=== PATIENT | male | born 1945 | race Asian ===

== ENCOUNTER 2022-09-10 01:11 | Inpatient (IN) | payer MEDICARE ==
[2022-09-10] MEDS ORDERED: Ondansetron ODT 4 MG TAB PO PRN (05:06)
[2022-09-10] MEDS ORDERED: Acetaminophen 325 MG TAB PO PRN (05:06)
[2022-09-10] MEDS ORDERED: Acetaminophen 650 MG Suppository PR PRN (05:06)
[2022-09-10] MEDS ORDERED: Ondansetron PF 4 MG/2 ML Vial IVP PRN (05:06)
[2022-09-10 05:15] VITALS: BMI 20.9
[2022-09-10] MEDS: Sodium Chloride 0.9% 1,000 ML IV SCH (09:21)
[2022-09-10] MEDS ORDERED: Dextrose 50% Abboject 50 ML SYRINGE SLOW IVP PRN (09:22)
[2022-09-10] MEDS ORDERED: Dextrose 5% in Water 1,000 ML IV PRN (09:22)
[2022-09-10] MEDS ORDERED: HumaLOG 300 UNITS/3 ML VIAL SC PRN (09:22)
[2022-09-10] MEDS ORDERED: Glucagon 1 MG/ML KIT IM PRN (09:22)
[2022-09-10] MEDS ORDERED: hydrALAZINE 20 MG/ML VIAL SLOW IVP PRN (09:46)
[2022-09-10] MEDS ORDERED: GoLYTELY 4,000 ml Bottle PO SCH (18:30)
[2022-09-10] MEDS: HumaLOG 300 UNITS/3 ML VIAL SC PRN (23:36)
[2022-09-11] MEDS: Sodium Chloride 0.9% 1,000 ML IV SCH (05:37)
[2022-09-11 06:10] LABS: #Basophils 0.1 thou/uL (0.0-0.2); #Eosinphils 0.1 thou/uL (0.0-0.7); #Monocytes 0.8 thou/uL (0.11-0.59); #Neutrophils 4.2 thou/uL (1.40-6.50); %Basophils 1.6 % (0.0-1.0); %Eosinophils 0.8 % (0.0-10.0); %Lymphocytes 18.2 % (21.0-51.0); %Monocytes 12.1 % (0.0-10.0); %Neutrophils 65.7 % (42.0-75.0); Hemoglobin 11.5 g/dL (14.0-18.0); Mean Corpuscular HGB CONC 30.5 g/dL (32.0-36.0); Mean Corpuscular Hemoglobin 26.3 pg (27.0-31.0); Mean Corpuscular Volume 86.1 fl (78.0-98.0); Mean Platelet Volume 8.4 fL (7.4-10.4); Platelet Count 316 10x3/uL (130-400); RBC Distribution Width 20.2 % (11.5-14.5); Red Blood Cell (RBC) Count 4.38 mill/uL (4.70-6.10); White Blood Cell (WBC) Count 6.4 10x3/uL (4.8-10.8)
[2022-09-11 06:28] LABS: Anion Gap 13 mmol/L (10-20); BUN (Urea Nitrogen) 18 mg/dL (8.4-25.7); Calc. Creatinine Clearance 54 mL/min (70-130); Calcium 9.3 mg/dL (7.8-10.44); Carbon Dioxide 28 mmol/L (23-31); Chloride 103 mmol/L (98-107); Estimated GFR 73; Glucose 111 mg/dL (83-110); Potassium 4.2 mmol/L (3.5-5.1); Sodium 140 mmol/L (136-145)
[2022-09-11] MEDS ORDERED: PROPOFOL 200 MG/20 ML VIAL ONE (09:55)
[2022-09-11] MEDS ORDERED: HumaLOG 300 UNITS/3 ML VIAL SC PRN (14:03)
[2022-09-11] MEDS ORDERED: Lisinopril 20 MG TAB PO SCH (14:15)
[2022-09-12] MEDS: Sodium Chloride 0.9% 1,000 ML IV SCH (01:39)
[2022-09-12] MEDS ORDERED: Meropenem 2 GM in Sodium Chloride 0.9% 100 ML IVPB SCH (06:00)
[2022-09-12] MEDS ORDERED: Fentanyl 250 MCG/5 ML VIAL ONE (06:21)
[2022-09-12] MEDS ORDERED: HYDROmorphone 2 MG/ML VIAL ONE (06:21)
[2022-09-12] MEDS ORDERED: SUGAMMADEX SODIUM 200 MG/2 ML VIAL ONE (06:22)
[2022-09-12] MEDS ORDERED: Dexmedetomidine 200 MCG/2 ML VIAL ONE (06:22)
[2022-09-12] MEDS ORDERED: PHENYLEPHRINE-NS 100 MCG/ML 10 ML SYRINGE ONE ×2 (06:22→07:48)
[2022-09-12] MEDS ORDERED: Bupivacaine HCl 0.5%/Epinephrine 1:200,000/PF 30 ml Vial ONE (06:54)
[2022-09-12] MEDS ORDERED: Ondansetron PF 4 MG/2 ML Vial ONE (07:48)
[2022-09-12] MEDS ORDERED: PROPOFOL 200 MG/20 ML VIAL ONE (07:48)
[2022-09-12] MEDS ORDERED: Dexamethasone 20 MG/5 ML VIAL ONE (07:48)
[2022-09-12] MEDS ORDERED: Rocuronium Bromide 10 MG/ML (10ML VIAL) ONE (07:48)
[2022-09-12] MEDS ORDERED: Lidocaine 1% PF 5 ML VIAL ONE (07:48)
[2022-09-12 09:15] LABS: % Free PSA 8.5 % (.); Total PSA 42.2 ng/mL (0.0-4.0)
[2022-09-12] MEDS ORDERED: Bupivacaine PF 0.5% 30 ML VIAL ONE (10:25)
[2022-09-12] MEDS ORDERED: Acetaminophen 500 MG TAB PO SCH (10:45)
[2022-09-12] MEDS ORDERED: hydrALAZINE 20 MG/ML VIAL ONE (11:16)
[2022-09-12] MEDS ORDERED: fentaNYL 50 mcg/mL 1 mL Vial ONE (11:41)
[2022-09-12] MEDS: Ketorolac Tromethamine 30 MG/ML VIAL IVP SCH ×3 (12:55→23:47)
[2022-09-12] MEDS: HumaLOG 300 UNITS/3 ML VIAL SC PRN ×2 (12:58→20:22)
[2022-09-12] MEDS: Lisinopril 20 MG TAB PO SCH (13:58)
[2022-09-12] MEDS: Acetaminophen 500 MG TAB PO SCH ×3 (13:59→20:21)
[2022-09-12] MEDS: Lactated Ringer's 1,000 ML IV SCH ×2 (13:59→18:50)
[2022-09-12] MEDS ORDERED: Gabapentin 300 MG CAP PO SCH (15:00)
[2022-09-12] MEDS: Gabapentin 100 MG CAP PO SCH ×2 (15:05→20:22)
[2022-09-12] MEDS ORDERED: Ketorolac Tromethamine 30 MG/ML VIAL IVP SCH (17:15)
[2022-09-13] MEDS: Lactated Ringer's 1,000 ML IV SCH ×3 (04:11→21:09)
[2022-09-13] MEDS: Ketorolac Tromethamine 30 MG/ML VIAL IVP SCH ×4 (05:30→23:30)
[2022-09-13 05:40] LABS: #Monocytes 1.3 thou/uL (0.11-0.59); #Neutrophils 9.5 thou/uL (1.40-6.50); %Basophils 0.2 % (0.0-1.0); %Eosinophils 0.1 % (0.0-10.0); %Monocytes 10.1 % (0.0-10.0); Hemoglobin 9.5 g/dL (14.0-18.0); Mean Corpuscular HGB CONC 30.7 g/dL (32.0-36.0); Mean Corpuscular Hemoglobin 26.8 pg (27.0-31.0); Mean Platelet Volume 8.8 fL (7.4-10.4); Platelet Count 254 10x3/uL (130-400); RBC Distribution Width 20.5 % (11.5-14.5); Red Blood Cell (RBC) Count 3.55 mill/uL (4.70-6.10); White Blood Cell (WBC) Count 12.6 10x3/uL (4.8-10.8)
[2022-09-13 05:46] LABS: Hemoglobin A1c 8.3 % (4.0-6.0)
[2022-09-13 06:03] LABS: Anion Gap 10 mmol/L (10-20); BUN (Urea Nitrogen) 19 mg/dL (8.4-25.7); Calc. Creatinine Clearance 47 mL/min (70-130); Calcium 8.5 mg/dL (7.8-10.44); Carbon Dioxide 26 mmol/L (23-31); Chloride 106 mmol/L (98-107); Estimated GFR 62; Glucose 186 mg/dL (83-110); Potassium 3.8 mmol/L (3.5-5.1); Sodium 138 mmol/L (136-145)
[2022-09-13] MEDS: Lisinopril 20 MG TAB PO SCH (08:39)
[2022-09-13] MEDS: Gabapentin 100 MG CAP PO SCH ×3 (08:40→21:07)
[2022-09-13] MEDS: Pantoprazole 40 MG VIAL IVP SCH (08:44)
[2022-09-13] MEDS: Acetaminophen 500 MG TAB PO SCH ×4 (08:44→21:06)
[2022-09-13] MEDS: Insulin Glargine 30 UNITS/0.3 ML VIAL SC SCH (21:09)
[2022-09-14 05:40] LABS: #Eosinphils 0.1 thou/uL (0.0-0.7); #Monocytes 0.9 thou/uL (0.11-0.59); #Neutrophils 7.9 thou/uL (1.40-6.50); %Basophils 0.3 % (0.0-1.0); %Eosinophils 1.1 % (0.0-10.0); %Lymphocytes 12.6 % (21.0-51.0); %Monocytes 8.6 % (0.0-10.0); %Neutrophils 76.6 % (42.0-75.0); Hemoglobin 9.3 g/dL (14.0-18.0); Mean Corpuscular HGB CONC 30.4 g/dL (32.0-36.0); Mean Corpuscular Hemoglobin 26.9 pg (27.0-31.0); Mean Corpuscular Volume 88.4 fl (78.0-98.0); Mean Platelet Volume 8.7 fL (7.4-10.4); Platelet Count 236 10x3/uL (130-400); RBC Distribution Width 20.5 % (11.5-14.5); Red Blood Cell (RBC) Count 3.46 mill/uL (4.70-6.10); White Blood Cell (WBC) Count 10.3 10x3/uL (4.8-10.8)
[2022-09-14] MEDS: Lactated Ringer's 1,000 ML IV SCH (06:04)
[2022-09-14] MEDS: Ketorolac Tromethamine 30 MG/ML VIAL IVP SCH (06:05)
[2022-09-14 06:06] LABS: Anion Gap 10 mmol/L (10-20); BUN (Urea Nitrogen) 17 mg/dL (8.4-25.7); Calc. Creatinine Clearance 50 mL/min (70-130); Calcium 8.5 mg/dL (7.8-10.44); Carbon Dioxide 26 mmol/L (23-31); Chloride 106 mmol/L (98-107); Estimated GFR 68; Glucose 146 mg/dL (83-110); Potassium 3.7 mmol/L (3.5-5.1); Sodium 138 mmol/L (136-145)
[2022-09-14] MEDS ORDERED: Acetaminophen/Codeine 30-300mg Tablet PO PRN (09:17)
[2022-09-14] MEDS ORDERED: Acetaminophen 325 MG TAB PO SCH (09:30)
[2022-09-14] MEDS: Gabapentin 100 MG CAP PO SCH ×3 (09:48→21:41)
[2022-09-14] MEDS: Lisinopril 20 MG TAB PO SCH (09:49)
[2022-09-14] MEDS: Pantoprazole 40 MG VIAL IVP SCH (09:51)
[2022-09-14] MEDS: Acetaminophen/Codeine 30-300mg Tablet PO SCH ×3 (13:35→22:00)
[2022-09-14] MEDS: Acetaminophen 500 MG TAB PO SCH (13:36)
[2022-09-14] MEDS: Acetaminophen 325 MG TAB PO SCH ×3 (13:37→21:41)
[2022-09-14] MEDS: HumaLOG 300 UNITS/3 ML VIAL SC PRN (13:47)
[2022-09-14] MEDS: Insulin Glargine 30 UNITS/0.3 ML VIAL SC SCH (21:40)
[2022-09-15] MEDS: Acetaminophen/Codeine 30-300mg Tablet PO SCH ×2 (04:44→05:52)
[2022-09-15] MEDS: hydrALAZINE 20 MG/ML VIAL SLOW IVP PRN (05:52)
[2022-09-15] MEDS: Acetaminophen 325 MG TAB PO SCH (08:19)
[2022-09-15] MEDS: Pantoprazole 40 MG VIAL IVP SCH (08:20)
[2022-09-15] MEDS: Gabapentin 100 MG CAP PO SCH (08:20)
[2022-09-15] MEDS: Ibuprofen 200 MG TAB PO PRN ×2 (08:41→16:42)
[2022-09-15] MEDS: Lisinopril 20 MG TAB PO SCH (08:41)
[2022-09-15] MEDS: Ferrous Sulfate 325 MG TAB PO SCH ×3 (12:52→19:38)
[2022-09-15] MEDS: HumaLOG 300 UNITS/3 ML VIAL SC PRN (12:53)
[2022-09-15] MEDS ORDERED: Acetaminophen/Codeine 30-300mg Tablet PO SCH (15:00)
[2022-09-15] MEDS ORDERED: traMADol HCl 50 MG TAB PO PRN (15:59)
[2022-09-15] MEDS: Gabapentin 300 MG CAP PO SCH ×2 (16:41→21:38)
[2022-09-15] MEDS: Acetaminophen 500 MG TAB PO PRN (16:42)
[2022-09-15] MEDS: Insulin Glargine 30 UNITS/0.3 ML VIAL SC SCH (21:38)
[2022-09-15] MEDS: Melatonin 3 MG TAB PO SCH (21:38)
[2022-09-16 05:52] LABS: #Basophils 0.1 thou/uL (0.0-0.2); #Eosinphils 0.2 thou/uL (0.0-0.7); #Monocytes 0.7 thou/uL (0.11-0.59); #Neutrophils 4.4 thou/uL (1.40-6.50); %Basophils 0.9 % (0.0-1.0); %Eosinophils 3.1 % (0.0-10.0); %Lymphocytes 17.2 % (21.0-51.0); %Monocytes 10.1 % (0.0-10.0); %Neutrophils 67.6 % (42.0-75.0); Hemoglobin 8.6 g/dL (14.0-18.0); Mean Corpuscular Hemoglobin 26.9 pg (27.0-31.0); Mean Corpuscular Volume 86.6 fl (78.0-98.0); Mean Platelet Volume 8.8 fL (7.4-10.4); Platelet Count 283 10x3/uL (130-400); White Blood Cell (WBC) Count 6.5 10x3/uL (4.8-10.8)
[2022-09-16 06:11] LABS: Anion Gap 11 mmol/L (10-20); BUN (Urea Nitrogen) 19 mg/dL (8.4-25.7); Calc. Creatinine Clearance 51 mL/min (70-130); Calcium 8.7 mg/dL (7.8-10.44); Carbon Dioxide 23 mmol/L (23-31); Chloride 109 mmol/L (98-107); Estimated GFR 69; Glucose 138 mg/dL (83-110); Potassium 3.8 mmol/L (3.5-5.1); Sodium 139 mmol/L (136-145)
[2022-09-16] MEDS: Ferrous Sulfate 325 MG TAB PO SCH ×2 (08:45→17:46)
[2022-09-16] MEDS: Pantoprazole 40 MG VIAL IVP SCH (08:45)
[2022-09-16] MEDS: Gabapentin 300 MG CAP PO SCH ×3 (08:45→21:21)
[2022-09-16] MEDS: Lisinopril 20 MG TAB PO SCH (08:45)
[2022-09-16] MEDS: HumaLOG 300 UNITS/3 ML VIAL SC PRN (17:46)
[2022-09-16] MEDS ORDERED: Sterile Water 10 ML VIAL FS PRN (21:00)
[2022-09-16] MEDS ORDERED: Melatonin 3 MG TAB PO SCH (21:00)
[2022-09-16] MEDS ORDERED: OLANZapine 10 MG VIAL IM SCH (21:00)
[2022-09-16] MEDS: Insulin Glargine 30 UNITS/0.3 ML VIAL SC SCH (21:20)
[2022-09-16] MEDS: traMADol HCl 50 MG TAB PO PRN (21:21)
[2022-09-16] MEDS: Melatonin 3 MG TAB PO SCH (23:40)
[2022-09-17] MEDS: Lisinopril 20 MG TAB PO SCH (09:01)
[2022-09-17] MEDS: Pantoprazole 40 MG VIAL IVP SCH (09:01)
[2022-09-17] MEDS: Ferrous Sulfate 325 MG TAB PO SCH ×2 (09:01→16:03)
[2022-09-17] MEDS: Gabapentin 300 MG CAP PO SCH ×3 (09:02→21:36)
[2022-09-17] MEDS: Acetaminophen 500 MG TAB PO PRN (09:13)
[2022-09-17] MEDS: HumaLOG 300 UNITS/3 ML VIAL SC PRN ×2 (12:44→18:04)
[2022-09-17] MEDS: Ibuprofen 200 MG TAB PO PRN ×2 (12:48→22:07)
[2022-09-17] MEDS: Melatonin 3 MG TAB PO SCH (21:35)
[2022-09-17] MEDS: Insulin Glargine 30 UNITS/0.3 ML VIAL SC SCH (21:37)
[2022-09-18 05:50] LABS: #Basophils 0.1 thou/uL (0.0-0.2); #Eosinphils 0.2 thou/uL (0.0-0.7); #Monocytes 0.8 thou/uL (0.11-0.59); #Neutrophils 3.9 thou/uL (1.40-6.50); %Basophils 0.9 % (0.0-1.0); %Eosinophils 3.7 % (0.0-10.0); %Lymphocytes 21.8 % (21.0-51.0); %Monocytes 11.9 % (0.0-10.0); %Neutrophils 60.1 % (42.0-75.0); Hemoglobin 8.8 g/dL (14.0-18.0); Mean Corpuscular HGB CONC 30.2 g/dL (32.0-36.0); Mean Corpuscular Volume 89.3 fl (78.0-98.0); Mean Platelet Volume 8.5 fL (7.4-10.4); Platelet Count 277 10x3/uL (130-400); RBC Distribution Width 20.3 % (11.5-14.5); Red Blood Cell (RBC) Count 3.26 mill/uL (4.70-6.10); White Blood Cell (WBC) Count 6.4 10x3/uL (4.8-10.8)
[2022-09-18] MEDS: HumaLOG 300 UNITS/3 ML VIAL SC PRN ×3 (06:00→18:14)
[2022-09-18 06:36] LABS: Anion Gap 11 mmol/L (10-20); BUN (Urea Nitrogen) 15 mg/dL (8.4-25.7); Calc. Creatinine Clearance 47 mL/min (70-130); Calcium 9.2 mg/dL (7.8-10.44); Carbon Dioxide 28 mmol/L (23-31); Chloride 103 mmol/L (98-107); Estimated GFR 62; Glucose 166 mg/dL (83-110); Potassium 4.2 mmol/L (3.5-5.1); Sodium 138 mmol/L (136-145)
[2022-09-18] MEDS: Lisinopril 20 MG TAB PO SCH (09:16)
[2022-09-18] MEDS: Ferrous Sulfate 325 MG TAB PO SCH ×2 (09:16→16:36)
[2022-09-18] MEDS: Pantoprazole 40 MG VIAL IVP SCH (09:17)
[2022-09-18] MEDS: Gabapentin 300 MG CAP PO SCH ×3 (09:18→20:13)
[2022-09-18] MEDS: Polyethylene Glycol 3350 17 GM Packet PO SCH (09:18)
[2022-09-18] MEDS: hydrALAZINE 20 MG/ML VIAL SLOW IVP PRN (14:01)
[2022-09-18] MEDS: Acetaminophen 500 MG TAB PO PRN (18:14)
[2022-09-18] MEDS: Insulin Glargine 30 UNITS/0.3 ML VIAL SC SCH (20:14)
[2022-09-18] MEDS: Melatonin 3 MG TAB PO SCH (20:14)
[2022-09-19] MEDS: Lisinopril 20 MG TAB PO SCH (09:52)
[2022-09-19] MEDS: Gabapentin 300 MG CAP PO SCH ×3 (09:52→21:53)
[2022-09-19] MEDS: Ferrous Sulfate 325 MG TAB PO SCH ×2 (09:52→18:04)
[2022-09-19] MEDS: Polyethylene Glycol 3350 17 GM Packet PO SCH (10:07)
[2022-09-19] MEDS: Pantoprazole 40 MG VIAL IVP SCH (10:07)
[2022-09-19] MEDS: HumaLOG 300 UNITS/3 ML VIAL SC PRN ×2 (12:29→18:09)
[2022-09-19] MEDS: hydrALAZINE 20 MG/ML VIAL SLOW IVP PRN (18:08)
[2022-09-19] MEDS: Melatonin 3 MG TAB PO SCH (21:53)
[2022-09-19] MEDS: traMADol HCl 50 MG TAB PO PRN (21:57)
[2022-09-19] MEDS: Insulin Glargine 30 UNITS/0.3 ML VIAL SC SCH (21:58)
[2022-09-20] MEDS: Ferrous Sulfate 325 MG TAB PO SCH ×2 (09:43→18:09)
[2022-09-20] MEDS: Lisinopril 20 MG TAB PO SCH (09:43)
[2022-09-20] MEDS: Gabapentin 300 MG CAP PO SCH ×3 (09:44→19:44)
[2022-09-20] MEDS: traMADol HCl 50 MG TAB PO PRN (09:57)
[2022-09-20] MEDS: Pantoprazole 40 MG VIAL IVP SCH (10:00)
[2022-09-20] MEDS: HumaLOG 300 UNITS/3 ML VIAL SC PRN (12:57)
[2022-09-20] MEDS: Polyethylene Glycol 3350 17 GM Packet PO SCH (15:32)
[2022-09-20] MEDS: Insulin Glargine 30 UNITS/0.3 ML VIAL SC SCH (19:44)
[2022-09-20] MEDS: Melatonin 3 MG TAB PO SCH (19:44)
[2022-09-21] MEDS: traMADol HCl 50 MG TAB PO PRN (02:11)
[2022-09-21] MEDS: Acetaminophen 500 MG TAB PO PRN (02:11)
[2022-09-21 06:24] LABS: #Basophils 0.1 thou/uL (0.0-0.2); #Eosinphils 0.4 thou/uL (0.0-0.7); #Monocytes 1.2 thou/uL (0.11-0.59); #Neutrophils 5.2 thou/uL (1.40-6.50); %Eosinophils 4.4 % (0.0-10.0); %Lymphocytes 17.4 % (21.0-51.0); %Monocytes 13.7 % (0.0-10.0); %Neutrophils 59.7 % (42.0-75.0); Hemoglobin 9.7 g/dL (14.0-18.0); Mean Corpuscular HGB CONC 30.4 g/dL (32.0-36.0); Mean Corpuscular Hemoglobin 27.2 pg (27.0-31.0); Mean Corpuscular Volume 89.4 fl (78.0-98.0); Mean Platelet Volume 8.6 fL (7.4-10.4); Platelet Count 333 10x3/uL (130-400); RBC Distribution Width 20.6 % (11.5-14.5); Red Blood Cell (RBC) Count 3.57 mill/uL (4.70-6.10); White Blood Cell (WBC) Count 8.7 10x3/uL (4.8-10.8)
[2022-09-21 06:49] LABS: Anion Gap 13 mmol/L (10-20); BUN (Urea Nitrogen) 23 mg/dL (8.4-25.7); Calc. Creatinine Clearance 43 mL/min (70-130); Calcium 9.2 mg/dL (7.8-10.44); Carbon Dioxide 26 mmol/L (23-31); Chloride 100 mmol/L (98-107); Estimated GFR 56; Glucose 191 mg/dL (83-110); Potassium 4.3 mmol/L (3.5-5.1); Sodium 135 mmol/L (136-145)
[2022-09-21] MEDS: Gabapentin 300 MG CAP PO SCH ×3 (08:39→23:18)
[2022-09-21] MEDS: Lisinopril 20 MG TAB PO SCH (08:39)
[2022-09-21] MEDS: Polyethylene Glycol 3350 17 GM Packet PO SCH (08:39)
[2022-09-21] MEDS: Pantoprazole 40 MG VIAL IVP SCH (08:40)
[2022-09-21] MEDS: Ferrous Sulfate 325 MG TAB PO SCH ×2 (08:40→17:19)
[2022-09-21] MEDS: HumaLOG 300 UNITS/3 ML VIAL SC PRN (13:42)
[2022-09-21] MEDS: Insulin Glargine 30 UNITS/0.3 ML VIAL SC SCH (23:18)
[2022-09-21] MEDS: Melatonin 3 MG TAB PO SCH (23:19)
[2022-09-22] MEDS: Pantoprazole 40 MG VIAL IVP SCH (08:35)
[2022-09-22] MEDS: Lisinopril 20 MG TAB PO SCH (08:35)
[2022-09-22] MEDS: Gabapentin 300 MG CAP PO SCH ×3 (08:35→20:09)
[2022-09-22] MEDS: Ferrous Sulfate 325 MG TAB PO SCH ×2 (08:35→16:12)
[2022-09-22] MEDS: Polyethylene Glycol 3350 17 GM Packet PO SCH (08:36)
[2022-09-22] MEDS: HumaLOG 300 UNITS/3 ML VIAL SC PRN ×2 (12:44→16:47)
[2022-09-22] MEDS: Insulin Glargine 30 UNITS/0.3 ML VIAL SC SCH (20:09)
[2022-09-22] MEDS: Melatonin 3 MG TAB PO SCH (20:09)
[2022-09-23] MEDS: Polyethylene Glycol 3350 17 GM Packet PO SCH (07:54)
[2022-09-23] MEDS: Ferrous Sulfate 325 MG TAB PO SCH ×2 (07:55→17:28)
[2022-09-23] MEDS: Lisinopril 20 MG TAB PO SCH (07:55)
[2022-09-23] MEDS: Pantoprazole 40 MG VIAL IVP SCH (07:55)
[2022-09-23] MEDS: Gabapentin 300 MG CAP PO SCH ×3 (07:55→20:15)
[2022-09-23] MEDS: HumaLOG 300 UNITS/3 ML VIAL SC PRN ×2 (12:40→17:28)
[2022-09-23] MEDS: Insulin Glargine 30 UNITS/0.3 ML VIAL SC SCH (20:16)
[2022-09-23] MEDS: Melatonin 3 MG TAB PO SCH (20:16)
[2022-09-24] MEDS: HumaLOG 300 UNITS/3 ML VIAL SC PRN ×3 (06:42→16:47)
[2022-09-24] MEDS: Lisinopril 20 MG TAB PO SCH (09:34)
[2022-09-24] MEDS: Gabapentin 300 MG CAP PO SCH ×3 (09:35→21:58)
[2022-09-24] MEDS: Ferrous Sulfate 325 MG TAB PO SCH ×2 (09:36→16:46)
[2022-09-24] MEDS: Pantoprazole 40 MG VIAL IVP SCH (09:38)
[2022-09-24] MEDS: Polyethylene Glycol 3350 17 GM Packet PO SCH (09:50)
[2022-09-24] MEDS: Lidocaine 4% Patch TD SCH (16:46)
[2022-09-24] MEDS: Melatonin 3 MG TAB PO SCH (21:58)
[2022-09-24] MEDS: Insulin Glargine 30 UNITS/0.3 ML VIAL SC SCH (22:04)
[2022-09-25] MEDS: Transdermal Patch Removal TOP SCH (04:13)
[2022-09-25] MEDS: Ferrous Sulfate 325 MG TAB PO SCH ×2 (10:06→15:55)
[2022-09-25] MEDS: Gabapentin 300 MG CAP PO SCH ×3 (10:06→22:50)
[2022-09-25] MEDS: Lisinopril 20 MG TAB PO SCH (10:07)
[2022-09-25] MEDS: Polyethylene Glycol 3350 17 GM Packet PO SCH (10:07)
[2022-09-25] MEDS: Acetaminophen 500 MG TAB PO PRN (10:10)
[2022-09-25] MEDS: Pantoprazole 40 MG VIAL IVP SCH (10:12)
[2022-09-25] MEDS: HumaLOG 300 UNITS/3 ML VIAL SC PRN ×2 (13:19→22:52)
[2022-09-25] MEDS: Lidocaine 4% Patch TD SCH (15:55)
[2022-09-25] MEDS: Insulin Glargine 30 UNITS/0.3 ML VIAL SC SCH (22:51)
[2022-09-25] MEDS: Melatonin 3 MG TAB PO SCH (22:51)
[2022-09-26] MEDS: Transdermal Patch Removal TOP SCH (04:47)
[2022-09-26] MEDS: Polyethylene Glycol 3350 17 GM Packet PO SCH (09:13)
[2022-09-26] MEDS: Gabapentin 300 MG CAP PO SCH ×3 (09:49→21:03)
[2022-09-26] MEDS: Ferrous Sulfate 325 MG TAB PO SCH ×2 (09:49→18:13)
[2022-09-26] MEDS: Lisinopril 20 MG TAB PO SCH (09:50)
[2022-09-26] MEDS: Lidocaine 4% Patch TD SCH (15:44)
[2022-09-26] MEDS: HumaLOG 300 UNITS/3 ML VIAL SC PRN (18:18)
[2022-09-26] MEDS: Melatonin 3 MG TAB PO SCH (21:02)
[2022-09-26] MEDS: Insulin Glargine 30 UNITS/0.3 ML VIAL SC SCH (21:03)
[2022-09-27] MEDS: Transdermal Patch Removal TOP SCH (03:10)
[2022-09-27] MEDS: HumaLOG 300 UNITS/3 ML VIAL SC PRN ×3 (06:38→17:28)
[2022-09-27] MEDS: Gabapentin 300 MG CAP PO SCH ×3 (08:27→20:54)
[2022-09-27] MEDS: Polyethylene Glycol 3350 17 GM Packet PO SCH (08:29)
[2022-09-27] MEDS: Lisinopril 20 MG TAB PO SCH (08:29)
[2022-09-27] MEDS: Ferrous Sulfate 325 MG TAB PO SCH ×2 (08:30→16:27)
[2022-09-27] MEDS ORDERED: Iopamidol-370 76% 500 ML MDV (1 ML CHARGE) ONE (10:36)
[2022-09-27] MEDS: Lidocaine 4% Patch TD SCH (15:42)
[2022-09-27] MEDS: Insulin Glargine 30 UNITS/0.3 ML VIAL SC SCH (20:49)
[2022-09-27] MEDS: Melatonin 3 MG TAB PO SCH (20:56)
[2022-09-28] MEDS: HumaLOG 300 UNITS/3 ML VIAL SC PRN ×3 (01:04→14:04)
[2022-09-28] MEDS: Transdermal Patch Removal TOP SCH (02:25)
[2022-09-28 06:13] LABS: #Basophils 0.2 thou/uL (0.0-0.2); #Eosinphils 0.6 thou/uL (0.0-0.7); #Monocytes 1.2 thou/uL (0.11-0.59); #Neutrophils 5.1 thou/uL (1.40-6.50); %Lymphocytes 13.9 % (21.0-51.0); %Monocytes 14.4 % (0.0-10.0); %Neutrophils 58.9 % (42.0-75.0); Hemoglobin 10.5 g/dL (14.0-18.0); Mean Corpuscular HGB CONC 30.3 g/dL (32.0-36.0); Mean Corpuscular Hemoglobin 27.9 pg (27.0-31.0); Mean Corpuscular Volume 91.8 fl (78.0-98.0); Mean Platelet Volume 9.3 fL (7.4-10.4); Platelet Count 418 10x3/uL (130-400); RBC Distribution Width 20.4 % (11.5-14.5); Red Blood Cell (RBC) Count 3.77 mill/uL (4.70-6.10); White Blood Cell (WBC) Count 8.6 10x3/uL (4.8-10.8)
[2022-09-28 06:34] LABS: Anion Gap 15 mmol/L (10-20); BUN (Urea Nitrogen) 35 mg/dL (8.4-25.7); Calc. Creatinine Clearance 43 mL/min (70-130); Calcium 9.2 mg/dL (7.8-10.44); Carbon Dioxide 23 mmol/L (23-31); Chloride 102 mmol/L (98-107); Estimated GFR 56; Glucose 202 mg/dL (83-110); Sodium 135 mmol/L (136-145)
[2022-09-28] MEDS: Gabapentin 300 MG CAP PO SCH ×3 (09:03→20:41)
[2022-09-28] MEDS: Ferrous Sulfate 325 MG TAB PO SCH ×2 (09:04→17:50)
[2022-09-28] MEDS: Polyethylene Glycol 3350 17 GM Packet PO SCH (09:07)
[2022-09-28] MEDS: Lisinopril 20 MG TAB PO SCH (11:40)
[2022-09-28] MEDS: Lidocaine 4% Patch TD SCH (14:30)
[2022-09-28] MEDS: Insulin Glargine 30 UNITS/0.3 ML VIAL SC SCH (20:40)
[2022-09-28] MEDS: Melatonin 3 MG TAB PO SCH (20:43)
[2022-09-29] MEDS: Transdermal Patch Removal TOP SCH (03:31)
[2022-09-29] MEDS: HumaLOG 300 UNITS/3 ML VIAL SC PRN ×3 (06:31→17:42)
[2022-09-29 06:51] LABS: Anion Gap 12 mmol/L (10-20); BUN (Urea Nitrogen) 32 mg/dL (8.4-25.7); Calc. Creatinine Clearance 43 mL/min (70-130); Calcium 9.4 mg/dL (7.8-10.44); Carbon Dioxide 25 mmol/L (23-31); Chloride 104 mmol/L (98-107); Estimated GFR 56; Glucose 184 mg/dL (83-110); Potassium 4.3 mmol/L (3.5-5.1); Sodium 137 mmol/L (136-145)
[2022-09-29] MEDS: Polyethylene Glycol 3350 17 GM Packet PO SCH (09:22)
[2022-09-29] MEDS: Gabapentin 300 MG CAP PO SCH ×3 (09:27→21:18)
[2022-09-29] MEDS: Ferrous Sulfate 325 MG TAB PO SCH ×2 (09:28→17:42)
[2022-09-29] MEDS: Lisinopril 20 MG TAB PO SCH (09:28)
[2022-09-29] MEDS: Lidocaine 4% Patch TD SCH (14:52)
[2022-09-29] MEDS: Melatonin 3 MG TAB PO SCH (21:18)
[2022-09-29] MEDS: Acetaminophen 500 MG TAB PO PRN (21:18)
[2022-09-29] MEDS: Insulin Glargine 30 UNITS/0.3 ML VIAL SC SCH (21:19)
[2022-09-30] MEDS: Transdermal Patch Removal TOP SCH (03:41)
[2022-09-30] MEDS: HumaLOG 300 UNITS/3 ML VIAL SC PRN ×2 (05:42→18:39)
[2022-09-30] MEDS ORDERED: Insulin Glargine 30 UNITS/0.3 ML VIAL SC SCH (09:00)
[2022-09-30] MEDS: Polyethylene Glycol 3350 17 GM Packet PO SCH (09:58)
[2022-09-30] MEDS: Ferrous Sulfate 325 MG TAB PO SCH ×2 (10:02→16:18)
[2022-09-30] MEDS: Gabapentin 300 MG CAP PO SCH ×3 (10:02→21:32)
[2022-09-30] MEDS: Lisinopril 20 MG TAB PO SCH (10:02)
[2022-09-30] MEDS: Lidocaine 4% Patch TD SCH (16:19)
[2022-09-30] MEDS: Insulin Glargine 30 UNITS/0.3 ML VIAL SC SCH (21:32)
[2022-09-30] MEDS: Melatonin 3 MG TAB PO SCH (21:32)
[2022-10-01] MEDS: Transdermal Patch Removal TOP SCH (03:26)
[2022-10-01] MEDS: Ferrous Sulfate 325 MG TAB PO SCH ×2 (09:24→18:00)
[2022-10-01] MEDS: Lisinopril 20 MG TAB PO SCH (09:25)
[2022-10-01] MEDS: Insulin Glargine 30 UNITS/0.3 ML VIAL SC SCH ×3 (09:26→20:19)
[2022-10-01] MEDS: Gabapentin 300 MG CAP PO SCH ×3 (09:29→20:19)
[2022-10-01] MEDS: Polyethylene Glycol 3350 17 GM Packet PO SCH (09:32)
[2022-10-01] MEDS: Lidocaine 4% Patch TD SCH (15:53)
[2022-10-01] MEDS: traMADol HCl 50 MG TAB PO PRN (20:19)
[2022-10-01] MEDS: Melatonin 3 MG TAB PO SCH (20:19)
[2022-10-02] MEDS: Transdermal Patch Removal TOP SCH (00:51)
[2022-10-02 09:37] VITALS: TEMP 97.6
[2022-10-02] MEDS: Gabapentin 300 MG CAP PO SCH (09:37)
[2022-10-02 09:38] VITALS: BP 151/85
[2022-10-02] MEDS: Insulin Glargine 30 UNITS/0.3 ML VIAL SC SCH (09:38)
[2022-10-02] MEDS: Ferrous Sulfate 325 MG TAB PO SCH (09:38)
[2022-10-02] MEDS: Polyethylene Glycol 3350 17 GM Packet PO SCH (09:38)
[2022-10-02] MEDS: Lisinopril 20 MG TAB PO SCH (09:38)
== END 2022-10-02 11:17 | disposition home or self-care (01) | DRG 329 ==
LOC: INTOOBSV 02:37 → SURG B 02:37 → OBSVTOIN 09-11 13:23 → SURG A 09-18 13:02
PROVIDERS: ADMIT Student in an Organized Health Care Education/Training Program; ATTEND Family Medicine
PROC: 0DBL8ZX Excision of Transverse Colon, Via Natural or Artificial Opening Endoscopic, Diagnostic (ICD-10-PCS; 2022-09-11)
PROC: 0DJ08ZZ Inspection of Upper Intestinal Tract, Via Natural or Artificial Opening Endoscopic (ICD-10-PCS; 2022-09-11)
PROC: 0DTL4ZZ Resection of Transverse Colon, Percutaneous Endoscopic Approach (ICD-10-PCS; principal; 2022-09-12)
PROC: 0DNL4ZZ Release Transverse Colon, Percutaneous Endoscopic Approach (ICD-10-PCS; 2022-09-12)
PROC: 0FT44ZZ Resection of Gallbladder, Percutaneous Endoscopic Approach (ICD-10-PCS; 2022-09-12)
PROC: 3E033XZ Introduction of Vasopressor into Peripheral Vein, Percutaneous Approach (ICD-10-PCS; 2022-09-12)
PROC: 07BC4ZX Excision of Pelvis Lymphatic, Percutaneous Endoscopic Approach, Diagnostic (ICD-10-PCS; 2022-09-12)
DX: C18.4 Malignant neoplasm of transverse colon (principal); G93.41 Metabolic encephalopathy; C81.23 Mixed cellularity Hodgkin lymphoma, intra-abdominal lymph nodes; D62 Acute posthemorrhagic anemia; K63.0 Abscess of intestine; K63.89 Other specified diseases of intestine; E11.9 Type 2 diabetes mellitus without complications; I10 Essential (primary) hypertension; R29.6 Repeated falls; D50.9 Iron deficiency anemia, unspecified; K40.90 Unilateral inguinal hernia, without obstruction or gangrene, not specified as recurrent; K80.20 Calculus of gallbladder without cholecystitis without obstruction; E87.6 Hypokalemia; R53.81 Other malaise; K59.00 Constipation, unspecified; R45.1 Restlessness and agitation; R97.20 Elevated prostate specific antigen [PSA]; D63.0 Anemia in neoplastic disease; Z98.890 Other specified postprocedural states; Z79.899 Other long term (current) drug therapy
CPT/HCPCS: 36415; 36416; 71260; 74177; 80048; 81479; 82378; 83036; 83735; 84153; 84154; 85025; 86850; 86900; 86901; 87070; 87205; 88184; 88185; 88189; 88305; 88309; 88341; 88342; 88361; 88365; 88374; 93306; C1889; C9113; G0378; J0360; J1100; J1170; J1650; J1815; J1885; J2405; J2704; J3010; J7050; J7120; Q9967; S0020

== ENCOUNTER 2022-11-01 10:15 | Outpatient (CLI) | payer MEDICARE | END 2022-11-01 10:16 | disposition home or self-care (01) | LOC: PET 10:15 | PROVIDERS: ATTEND Internal Medicine | DX: C81.40 Lymphocyte-rich Hodgkin lymphoma, unspecified site (principal); R59.0 Localized enlarged lymph nodes; Z85.038 Personal history of other malignant neoplasm of large intestine | CPT/HCPCS: 78815; A9552 ==